=== PATIENT | male | born 1990 | race Caucasian/White ===

== ENCOUNTER 2018-06-28 21:21 | Emergency (ER) | payer SELFPAY ==
[~2018-06-28] VITALS: Ht 162.5 cm; Wt 58.1 kg
--- NOTE | ~2018-06-28 | EKG ---
[place], [place] ELECTROCARDIOGRAM REPORT NAME: FREDO STRICKLAND III UNIT #: [id number] ROOM: DOCTOR: EPIPHANY DRAFT REPORT BIRTHDATE: [birth year] [facility] Test Date: 2018-06-28 Test Time: 22:21:15 Pat Name: FREDO STRICKLAND Department: Room: Gender: M [employer]acking Machine Operator: : 1990 Requested By: ASTRID GRAHAM PA-C Order Number: [id number] Reading MD: Peter Sanches MD Measurements Intervals [place] Rate: 53 P: 57 MN: 128 QRS: 80 QRSD: 90 T: 52 QT: 407 QTc: 383 Interpretive Statements Sinus rhythm LVH by voltage Lateral infarct, acute Anterior ST elevation, probably due to LVH Baseline wander in lead(s) II,III,aVF,V2 No previous ECG available for comparison Electronically Signed On 06-29-2018 8:58:09 PST by Peter Sanches MD CM:EKGRPT:ELECTROCARDIOGRAM REPORT [id number] ASTRID GRAHAM PA-C EPIPHANY DRAFT REPORT ASTRID GRAHAM PA-C
[~2018-06-28 21:21] MED LIST: AMOXICILLIN500 MG PO; MOTRIN800 MG PO; ULTRAM50 MG PO
[2018-06-28 21:58] LABS: BASO # 0.1 10*3/uL (0.0-0.1); BASO % 0.8 % (0.0-1.0); EOS # 0.4 10*3/uL (0.0-0.4); EOS % 3.9 % (1.0-4.0); HEMATOCRIT 41.8 % (42.0-52.0); LYMPH # 1.7 10*3/uL (1.3-4.4); LYMPH % 18.6 % (27.0-41.0); MEAN CELL VOLUME 87.3 fl (80.0-94.0); MEAN CORPUSCULAR HGB 29.2 pg (27.0-31.0); MEAN CORPUSCULAR HGB CONC 33.5 g/dl (33.0-37.0); MEAN PLATELET VOLUME 9.5 fl (9.6-12.3); MONO # 0.7 10*3/uL (0.1-1.0); MONO % 7.7 % (3.0-9.0); NEUT # 6.3 10*3/uL (2.3-7.9); NEUT % 68.5 % (47.0-73.0); PLATELET COUNT AUTOMATED 286 10*3/uL (130-400); RED BLOOD COUNT 4.79 10*6/uL (4.50-5.90); RED CELL DISTRI WIDTH 13.9 % (0-14.5); WHITE BLOOD COUNT 9.2 10*3/uL (4.8-10.8)
[2018-06-28 22:17] LABS: ALBUMIN 4.1 gm/dl (3.1-4.5); ALKALINE PHOSPHATASE 72 U/L (45-117); BUN 16 mg/dl (7-24); CHLORIDE 104 mmol/L (98-107); CREATININE 0.95 mg/dL (0.70-1.30); POTASSIUM 3.9 mmol/L (3.5-5.1); SGOT/AST 21 IU/L (3-35); SGPT/ALT 42 U/L (12-78); SODIUM 141 mmol/L (136-145); TOTAL PROTEIN 7.5 gm/dL (6.4-8.2)
[2018-06-28 22:20] LABS: ETHYL ALCOHOL < 3.0 mg/dl (<3)
[2018-06-28 22:35] LABS: BILIRUBIN NEGATIVE (NEGATIVE); BLOOD NEGATIVE (NEGATIVE); CLARITY CLEAR (CLEAR); COLOR YELLOW (YELLOW); GLUCOSE NEGATIVE (NEGATIVE); KETONE NEGATIVE (NEGATIVE); LEUKO ESTERASE NEGATIVE (NEGATIVE); NITRITE NEGATIVE (NEGATIVE); SPECIFIC GRAVITY 1.015 (1.005-1.030); UROBILINOGEN 0.2 E.U./dl (0.2-1.0)
[2018-06-28 22:44] LABS: URINE AMPHETAMINES > 1000 (1000ng/ml); URINE BARBITURATES < 200 (200ng/ml); URINE BENZODIAZEPINES < 200 (200ng/ml); URINE CANNABINOIDS (THC) > 50 (50ng/ml); URINE COCAINE < 300 (300ng/ml); URINE METHADONE < 300 (300ng/ml); URINE OPIATES < 300 (300ng/ml)
[2018-06-28 22:50] LABS: URINE PHENCYCLIDINE < 25 (25ng/ml)
[2018-06-28 23:33] LABS: BACTERIA TRACE; RBC 0-2 rbc/hpf (0-2)
[2018-06-28 23:48] LABS: ACETAMINOPHEN (TYLENOL) < 2.0 ug/ml (10-30)
== END 2018-06-29 08:39 ==
LOC: ED 21:21
PROVIDERS: Physician Assistant
DX: F31.9 Bipolar disorder, unspecified (principal); Z88.6 Allergy status to analgesic agent